=== PATIENT | female | born 1995 | race Caucasian/White ===

== ENCOUNTER 2017-06-26 15:23 | Outpatient (CLI) | payer OTHER ==
[2017-06-26] MEDS ORDERED: TERBUTALINE 1 MG/ML INJ SC (17:00)
[2017-06-26] MEDS ORDERED: LACTATED RINGER'S 1,000 ML IV (17:00)
[2017-06-26 17:04] LABS: ADD UMIC YES; UR ASCORBIC ACID NEGATIVE (NEGATIVE); UR BACTERIA FEW /HPF (NONE SEEN); UR BILIRUBIN (Dip) NEGATIVE (NEGATIVE); UR BLOOD (Dip) NEGATIVE (NEGATIVE); UR CLARITY CLEAR (CLEAR); UR COLOR YELLOW (YELLOW); UR GLUCOSE (Dip) NEGATIVE (NEGATIVE); UR KETONES (Dip) NEGATIVE (NEGATIVE); UR LEUKOCYTE ESTERASE (Dip) TRACE Leu/ul (NEGATIVE); UR NITRITE (Dip) NEGATIVE (NEGATIVE); UR RBC 1 /HPF (0-5); UR SPECIFIC GRAVITY (Dip) 1.023 (1.003-1.030); UR SQUAMOUS EPITHELIAL CELL FEW /HPF (FEW); UR TOTAL PROTEIN (Dip) NEGATIVE (NEGATIVE); UR UROBILINOGEN (Dip) 1+ mg/dL (NEGATIVE); UR WBC 4 /HPF (0-5)
[2017-06-26 18:12] LABS: ADD MAN DIFF? NO
[2017-06-26 18:14] LABS: WHITE BLOOD COUNT 11.2 10^3/ul (4.8-10.8)
[2017-06-26 18:14] LABS: BASOPHIL # 0.1 10^3/ul (0.0-0.1); BASOPHILS % 0.6 % (0.0-2.0); EOSINOPHILS # 0.2 10^3/ul (0.0-0.5); EOSINOPHILS % 2.1 % (0.0-7.0); HEMATOCRIT 35.8 % (37.0-47.0); HEMOGLOBIN 11.8 g/dl (12.0-16.0); LYMPHOCYTES # 1.9 10^3/ul (0.8-2.9); LYMPHOCYTES % 16.8 % (15.0-51.0); MEAN CORPUSCULAR HEMOGLOBIN 25.5 pg (29.0-33.0); MEAN CORPUSCULAR VOLUME 77.5 fl (82.0-101.0); MEAN PLATELET VOLUME 11.5 fl (7.4-10.4); MONOCYTE # 0.6 10^3/ul (0.3-0.9); MONOCYTES % 5.2 % (0.0-11.0); NEUTROPHILS % 71.4 % (39.0-77.0); NUCLEATED RED BLOOD CELLS% 0.3 /100WBC (0.0-0.0); PLATELET COUNT 187 10^3/UL (140-415); RED BLOOD COUNT 4.62 10^6/ul (4.20-5.40); RED CELL DISTRIBUTION WIDTH 14.8 % (11.5-14.5)
== END 2017-06-26 18:40 | disposition home or self-care (01) ==
LOC: OBT 15:23 → L-D 15:25 → OBT 18:40
DX: O62.9 Abnormality of forces of labor, unspecified (principal); Z3A.22 22 weeks gestation of pregnancy
CPT/HCPCS: 76817; 81001; 85025; 87086

== ENCOUNTER 2017-10-19 15:50 | Inpatient (IN) | payer OTHER ==
[2017-10-19] MEDS ORDERED: IBUPROFEN 600 MG TAB PO (17:00)
[2017-10-19] MEDS ORDERED: OXYTOCIN 30 UNITS/LR 500 ML IV (17:00)
[2017-10-19] MEDS ORDERED: CARBOPROST 250 MCG INJ IM (17:00)
[2017-10-19] MEDS ORDERED: BUTORPHANOL 2 MG INJ IV (17:00)
[2017-10-19] MEDS ORDERED: METHYLERGONOVINE 0.2 MG INJ IM (17:00)
[2017-10-19] MEDS ORDERED: MISOPROSTOL 200 MCG TAB PR (17:00)
[2017-10-19] MEDS ORDERED: LIDOCAINE 1% (MPF) 30 ML INJ INJ (17:00)
[2017-10-19] MEDS: LACTATED RINGER'S 1,000 ML IV* (17:31)
[2017-10-19] MEDS: AMPICILLIN 2 GM/NS (PMX) 100 ML IV (18:11)
[2017-10-19 18:12] LABS: ADD MAN DIFF? NO
[2017-10-19 18:18] LABS: WHITE BLOOD COUNT 9.7 10^3/ul (4.8-10.8)
[2017-10-19 18:18] LABS: ABNORMAL IP MESSAGE 1; BASOPHILS % 0.4 % (0.0-2.0); EOSINOPHILS # 0.2 10^3/ul (0.0-0.5); EOSINOPHILS % 2.2 % (0.0-7.0); HEMATOCRIT 33.4 % (37.0-47.0); HEMOGLOBIN 10.4 g/dl (12.0-16.0); LYMPHOCYTES # 1.6 10^3/ul (0.8-2.9); LYMPHOCYTES % 16.7 % (15.0-51.0); MEAN CORPUSCULAR HEMOGLOBIN 23.1 pg (29.0-33.0); MEAN CORPUSCULAR HGB CONC 31.1 g/dl (32.0-37.0); MEAN CORPUSCULAR VOLUME 74.2 fl (82.0-101.0); MONOCYTE # 0.7 10^3/ul (0.3-0.9); MONOCYTES % 7.6 % (0.0-11.0); NEUTROPHIL # 6.8 10^3/ul (1.6-7.5); PLATELET COUNT 156 10^3/UL (140-415); RED CELL DISTRIBUTION WIDTH 15.4 % (11.5-14.5)
[2017-10-19 18:23] LABS: POSITIVE DIFF @See below
[2017-10-19 18:37] LABS: INR 0.92; PROTIME 12.4 Sec (11.9-14.9)
[2017-10-19 18:38] LABS: PARTIAL THROMBOPLASTIN TIME 26.9 Sec (25.0-35.0)
[2017-10-19 19:07] LABS: HEPATITIS B SURFACE ANTIGEN NEGATIVE (NEGATIVE)
[2017-10-19] MEDS: OXYTOCIN 30 UNITS/LR 500 ML IV (20:31)
[2017-10-19] MEDS: AMPICILLIN 1 GM/NS (PMX) 50 ML IV (22:00)
[2017-10-20] MEDS: LACTATED RINGER'S 1,000 ML IV* ×4 (01:20→21:16)
[2017-10-20] MEDS: AMPICILLIN 1 GM/NS (PMX) 50 ML IV ×5 (01:56→18:02)
[2017-10-20] MEDS ORDERED: FENTAnyl 2MCG/ML-ROPIV 0.2% 100 ML (05:42)
[2017-10-20] MEDS ORDERED: ONDANSETRON 4 MG INJ IV (06:00)
[2017-10-20] MEDS ORDERED: NALOXONE (0.4 MG/ML) INJ IV (06:00)
[2017-10-20] MEDS ORDERED: DIPHENHYDRAMINE 50 MG INJ IV (06:00)
[2017-10-20] MEDS: FENTAnyl 2MCG/ML-ROPIV 0.2% 100 ML BAG EPI (12:34)
[2017-10-20 15:17] LABS: RAPID PLASMA REAGIN NONREACTIVE (NR)
[2017-10-20] MEDS ORDERED: MINERAL OIL LIGHT 10 ML VIAL TOP (17:45)
[2017-10-20] MEDS: OXYTOCIN 30 UNITS/LR 500 ML IV (18:40)
[2017-10-20] MEDS ORDERED: CARBOPROST 250 MCG INJ IM (21:30)
[2017-10-20] MEDS ORDERED: HYDROCODONE/APAP (5/325) TAB PO (21:30)
[2017-10-20] MEDS ORDERED: METHYLERGONOVINE 0.2 MG INJ IM (21:30)
[2017-10-20] MEDS ORDERED: ZOLPIDEM 5 MG TAB PO (21:30)
[2017-10-20] MEDS ORDERED: MISOPROSTOL 200 MCG TAB PR (21:30)
[2017-10-20] MEDS ORDERED: OXYTOCIN 30 UNITS/LR 500 ML IV (21:30)
[2017-10-20] MEDS ORDERED: DIBUCAINE 1% 30 GM OINT PR (21:30)
[2017-10-20] MEDS: IBUPROFEN 600 MG TAB PO (23:12)
[2017-10-20] MEDS: CEPHALEXIN 500 MG CAP PO (23:12)
[2017-10-20] MEDS: BENZOCAINE 20% 56 ML SPRAY TOP (23:12)
[2017-10-20] MEDS: LANOLIN 7 GM TUBE TOP (23:12)
[2017-10-20] MEDS: WITCH HAZEL/GLYCERIN PAD PR (23:13)
[2017-10-21] MEDS: LACTATED RINGER'S 1,000 ML IV* ×3 (05:16→22:49)
[2017-10-21] MEDS: CEPHALEXIN 500 MG CAP PO ×4 (05:30→23:36)
[2017-10-21] MEDS: IBUPROFEN 600 MG TAB PO ×4 (05:30→23:36)
[2017-10-21 07:48] LABS: ADD MAN DIFF? NO
[2017-10-21 07:54] LABS: WHITE BLOOD COUNT 12.2 10^3/ul (4.8-10.8)
[2017-10-21 07:54] LABS: ABNORMAL IP MESSAGE 1; BASOPHILS % 0.3 % (0.0-2.0); EOSINOPHILS # 0.2 10^3/ul (0.0-0.5); EOSINOPHILS % 1.5 % (0.0-7.0); HEMATOCRIT 33.5 % (37.0-47.0); HEMOGLOBIN 10.2 g/dl (12.0-16.0); LYMPHOCYTES # 2.5 10^3/ul (0.8-2.9); LYMPHOCYTES % 20.8 % (15.0-51.0); MEAN CORPUSCULAR HEMOGLOBIN 22.8 pg (29.0-33.0); MEAN CORPUSCULAR HGB CONC 30.4 g/dl (32.0-37.0); MEAN CORPUSCULAR VOLUME 74.8 fl (82.0-101.0); MEAN PLATELET VOLUME 12.7 fl (7.4-10.4); MONOCYTES % 8.4 % (0.0-11.0); NEUTROPHIL # 8.2 10^3/ul (1.6-7.5); NEUTROPHILS % 67.2 % (39.0-77.0); PLATELET COUNT 148 10^3/UL (140-415); RED BLOOD COUNT 4.48 10^6/ul (4.20-5.40); RED CELL DISTRIBUTION WIDTH 15.6 % (11.5-14.5)
[2017-10-21 07:57] LABS: POSITIVE DIFF @See below
[2017-10-21] MEDS: MAGNESIUM HYDROXIDE 30ML CUP PO ×2 (08:55→21:04)
[2017-10-21] MEDS: SENNA/DOCUSATE NA (8.6MG/50MG) TAB PO ×2 (08:55→21:04)
[2017-10-21] MEDS: HYDROCODONE/APAP (5/325) TAB PO (09:02)
[2017-10-22] MEDS: LACTATED RINGER'S 1,000 ML IV* ×2 (05:16→13:16)
[2017-10-22] MEDS: IBUPROFEN 600 MG TAB PO ×3 (06:21→17:09)
[2017-10-22] MEDS: CEPHALEXIN 500 MG CAP PO ×3 (06:21→17:09)
[2017-10-22] MEDS: SENNA/DOCUSATE NA (8.6MG/50MG) TAB PO (09:06)
[2017-10-22] MEDS: MAGNESIUM HYDROXIDE 30ML CUP PO (09:06)
[2017-10-22] MEDS: DIPHTH/TET/ACEL PERTUSS (ADULT) 0.5 ML VIAL IM* (09:08)
[2017-10-22] MEDS: MEASLES,MUMPS,RUBELLA VACCINE INJ SC* (09:08)
[2017-10-22] MEDS: VARICELLA VACCINE LIVE/PF 1,350 UNIT/0.5 ML ML SC* (09:09)
== END 2017-10-22 18:15 | disposition home or self-care (01) | DRG 775 ==
LOC: L-D 15:50 → PP1 10-20 20:35 → L-D 16:11
PROVIDERS: Obstetrics & Gynecology
PROC: 10E0XZZ Delivery of Products of Conception, External Approach (ICD-10-PCS; principal; 2017-10-19 16:00)
PROC: 0HQ9XZZ Repair Perineum Skin, External Approach (ICD-10-PCS; 2017-10-19 16:00)
PROC: 3E033VJ Introduction of Other Hormone into Peripheral Vein, Percutaneous Approach (ICD-10-PCS; 2017-10-19 16:00)
DX: O69.81X0 Labor and delivery complicated by cord around neck, without compression, not applicable or unspecified (principal); O70.0 First degree perineal laceration during delivery; Z3A.39 39 weeks gestation of pregnancy; Z37.0 Single live birth
CPT/HCPCS: 62319; 76815; 85025; 85610; 85730; 86592; 86850; 86900; 86901; 87340

== ENCOUNTER 2017-10-31 15:03 | Emergency (ER) | payer OTHER | END 2017-10-31 19:10 | disposition home or self-care (01) | LOC: FTE 15:03 | DX: O92.79 Other disorders of lactation (principal) | CPT/HCPCS: 76641; 76641-50; 99284-25 ==